=== PATIENT | female | born 1955 | race Caucasian/White ===

== ENCOUNTER 2017-03-12 04:14 | Emergency (ER) | payer MEDICAID ==
[2017-03-12 04:25] VITALS: BMI 28.3
[2017-03-12] MEDS ORDERED: Albuterol-Ipratrop 3 mg / 0.5 (3 ml) UD IH STA (04:25)
[2017-03-12 04:27] VITALS: BP 142/86; PULSE 84; RESP 18; TEMP 98.3; O2SAT 99
[2017-03-12] MEDS ORDERED: MethylPREDNISolone 40 mg Vial IV ONE (04:30)
[2017-03-12 05:18] LABS: BASO # 0.04 K/mm3 (0.0-2.0); BASO % 0.5 % (0.0-3.0); EOS # 0.3 (0.0-0.7); EOS % 3.3 % (1.5-5.0); GRAN # 5.68 (1.4-6.5); GRAN % 65.5 % (50.0-68.0); HEMATOCRIT 40.6 % (36.0-48.0); LYMPH % 22.9 % (22.0-35.0); MEAN CORPUSCULAR HEMOGLOBIN 29.4 pg (25.0-35.0); MONO # 0.7 (0.1-0.6); MONO % 7.8 % (1.0-6.0); RED CELL DISTRIBUTION WIDTH 12.5 % (11.5-14.5); WHITE BLOOD COUNT 8.7 10^3/ul (4.5-11.0)
[2017-03-12 05:29] LABS: BLOOD UREA NITROGEN 12 mg/dL (7-21); CALCIUM 9.2 mg/dL (8.4-10.5); CARBON DIOXIDE 24 mmol/L (21-33); CHLORIDE 100 mmol/L (98-107); GFR AFRICAN-AMERICAN > 60; GLUCOSE,RANDOM 193 mg/dL (70-110); POTASSIUM 3.8 mmol/L (3.6-5.0); SODIUM 136 mmol/L (132-148)
[2017-03-12 05:46] LABS: TROPONIN I < 0.01 ng/mL
--- NOTE | 2017-03-12 06:14 | ED PDOC ---
Arrival/HPI - General Chief Complaint: Shortness Of Breath Time Seen by Provider: 03/12/17 04:21 Historian: Patient, Family, Financial Data Analyst (son translated) - History of Present Illness Time/Duration: Prior to Arrival Symptom Onset: Sudden Symptom Course: Resolved Quality: Tightness Activities at Onset: Sleeping Past Medical History - Provider Review Nursing Documentation Reviewed: Yes - Past History Past History: Non-Contributing - Infectious Disease Hx of Infectious Diseases: None - Tetanus Immunization Tetanus Immunization: Unknown - Reproductive Menopause: Yes - Cardiac Hx Cardiac Disorders: Yes Hx Hypertension: Yes - Pulmonary Hx Respiratory Disorders: No - Neurological Hx Neurological Disorder: No - HEENT Hx HEENT Disorder: No - Renal Hx Renal Disorder: No - Endocrine/Metabolic Hx Endocrine Disorders: Yes Hx Diabetes Mellitus Type 2: Yes - Hematological/Oncological Hx Blood Disorders: No - Integumentary Hx Dermatological Disorder: No - Musculoskeletal/Rheumatological Hx Musculoskeletal Disorders: No - Gastrointestinal Hx Gastrointestinal Disorders: No - Genitourinary/Gynecological Hx Genitourinary Disorders: No - Psychiatric Hx Psychophysiologic Disorder: No Hx Anxiety: No Hx Bipolar Disorder: No Hx Depression: No Hx Emotional Abuse: No Hx Hallucinations: No Hx Panic Disorder: No Hx Post Traumatic Stress Disorder: No Hx Psychosis: No Hx Physical Abuse: No Hx Schizophrenia: No Hx Sexual Abuse: No Hx Substance Use: No - Surgical History Hx Section: Yes Hx Cholecystectomy: Yes - Anesthesia Hx Anesthesia: Yes Hx Anesthesia Reactions: No Hx Malignant Hyperthermia: No - Suicidal Assessment Feels Threatened In Home Enviroment: No Family/Social History - Physician Review Nursing Documentation Reviewed: Yes Family/Social History: No Known Family HX, Other Narrative Family History (Free Text): non-contributory Smoking Status: Never Smoked Hx Alcohol Use: No Hx Substance Use: No Hx Substance Use Treatment: No Allergies/Home Meds Allergies/Adverse Reactions: Allergies No Known Allergies Allergy (Verified 03/12/17 04:24) Home Medications: Home Meds Medication Instructions Recorded Confirmed GlipiZIDE [Glucotrol] 10 mg PO DAILY 01/07/14 03/12/17 Atorvastatin [Lipitor] 40 mg PO HS 03/13/16 03/12/17 Metformin HCl [Glucophage] 1,000 mg PO DAILY 03/13/16 03/12/17 Omeprazole 40 mg PO DAILY 03/12/17 03/12/17 Review of Systems - Review of Systems Respiratory: SOB, Cough. absent: Sputum Cardiovascular: absent: Chest Pain, Palpitations Gastrointestinal: absent: Abdominal Pain, Diarrhea Skin: absent: Rash, Skin Lesions Neurological: Headache. absent: Dizziness Physical Exam Vital Signs Reviewed: Yes Vital Signs Temp Pulse Resp BP Pulse Ox 03/12/17 04:28 18 03/12/17 04:22 98.3 F 84 18 142/86 99 Temperature: Afebrile Blood Pressure: Hypertensive Pulse: Regular Respiratory Rate: Normal Appearance: Positive for: Uncomfortable Mental Status: Positive for: Alert and Oriented X 3 - Systems Exam Mouth: Present: Moist Mucous Membranes Respiratory/Chest: Present: Wheezes. No: Rales, Rhonchi Cardiovascular: Present: Regular Rate and Rhythm, Normal S1, S2 Abdomen: Present: Normal Bowel Sounds. No: Tenderness, Distention Neurological: Present: CN II-XII Intact Skin: Present: Dry, Normal Color Psychiatric: Present: Alert, Oriented x 3 Medical Decision Making ED Course and Treatment: Assessment 62 year old female with shortness of breath Plan - X-ray is normal; symptoms most likely due to possibly viral induced bronchitis - Will prescribe Z-pack, Prednisone, Duoneb - Recommend f/u with PMD Dr. Abebe - Lab Interpretations Lab Results: 03/12/17 05:05 03/12/17 05:05 Lab Results 03/12/17 05:05: Sodium 136, Potassium 3.8, Chloride 100, Carbon Dioxide 24, Anion Gap 16, BUN 12, Creatinine 0.6, Est GFR ( Amer) > 60, Est GFR (Non- Af Amer) > 60, Random Glucose 193 H, Calcium 9.2, Troponin I < 0.01, NT-Pro-B Natriuret Pep 57.9 03/12/17 05:05: WBC 8.7, RBC 4.56, Hgb 13.4, Hct 40.6, MCV 89.0, MCH 29.4, MCHC 33.0, RDW 12.5, Plt Count 254, MPV 9.0, Gran % 65.5, Lymph % (Auto) 22.9, [place] % (Auto) 7.8 H, Eos % (Auto) 3.3, Baso % (Auto) 0.5, Gran # 5.68, Lymph # 2.0, [place] # 0.7 H, Eos # 0.3, Baso # 0.04 - RAD Interpretation Radiology Orders: 03/12/17 04:26 CHEST PORTABLE [RAD] Stat Retail Business Development Manager: Radiologist - EKG Interpretation Interpreted by ED Physician: Yes Type: 12 lead EKG - Medication Orders Current Medication Orders: Discontinued Medications Albuterol/Ipratropium (Duoneb 3 Mg/0.5 Mg (3 Ml) Ud) 3 ml IH STAT STA Stop: 03/12/17 04:26 Last Admin: 03/12/17 04:37 Dose: 3 ml Methylprednisolone (Solu-Medrol) 125 mg IVP STAT STA Stop: 03/12/17 04:35 Last Admin: 03/12/17 04:37 Dose: 125 mg Disposition/Present on Arrival - Present on Arrival Any Indicators Present on Arrival: No History of DVT/PE: No History of Uncontrolled Diabetes: No Urinary Catheter: No History of Decub. Ulcer: No History Surgical Site Infection Following: None - Disposition Have Diagnosis and Disposition been Completed?: Yes Diagnosis: Bronchitis Disposition: HOME/ ROUTINE Disposition Time: 06:41 Patient Plan: Discharge Patient Problems: Current Active Problems Problem Status Onset Bronchitis Acute Condition: FAIR Additional Instructions: Will prescribe antibiotics, prednisone, and Duoneb inhaler for current symptoms ; follow directions as prescribed. Follow up with Dr. Abebe so he is aware of hospitalization. If symptoms worsen or in case of any concerns, return back to the ER. Referrals: Clyde Abebe MD [Primary Care Provider] - Follow up with primary Forms: [employer] ([email or web address]) (Welsh)
--- NOTE | 2017-03-12 07:52 | RAD ---
HISTORY: shortness of breath COMPARISON: Frontal chest radiograph 09/14/2016 FINDINGS: LUNGS: Linear atelectasis or fibrosis in the inferior lung bases bilaterally. No acute infiltrate is identified. PLEURA: No significant pleural effusion identified, no pneumothorax apparent. CARDIOVASCULAR: Normal. OSSEOUS STRUCTURES: No significant abnormalities. VISUALIZED UPPER ABDOMEN: Normal. OTHER FINDINGS: None. IMPRESSION: No acute infiltrate pleural effusion or CHF pattern. Linear atelectasis or fibrosis in the bilateral lung bases in the interval. Inspiratory volume appears improved.
--- NOTE | 2017-03-12 11:29 | CARD ---
APPROVED REPORT EKG Measurement Heart [id number] <Conclusion> Normal sinus rhythm Normal ECG
== END 2017-03-12 06:45 | disposition home or self-care (01) ==
LOC: ED 04:14
DX: J40 Bronchitis, not specified as acute or chronic (principal)
CPT/HCPCS: 71010; 80048; 83880; 84484; 85025; 93005; 96374; 99283; J2930